=== PATIENT | male | born 1995 | race Caucasian/White ===

== ENCOUNTER 2022-06-02 10:22 | Observation (INO) ==
[2022-06-02] MEDS ORDERED: HYDROmorphone 1 MG/1 ML SYRINGE IV STA (10:40)
[2022-06-02] MEDS ORDERED: ONDANSETRON 4 MG/2 ML VIAL IV STA (10:40)
[2022-06-02] MEDS ORDERED: SODIUM CHLORIDE 0.9% 1,000 ML IV STA (10:40)
[2022-06-02 11:04] LABS: Basophils % 0.4 % (0.0-0.8); Eosinophils % 0.2 % (0.00-10.9); Hematocrit 42.9 VOL% (42.0-52.0); Hemoglobin 14.8 GM/DL (14.0-18.0); Immature Granulocytes % 0.4 %; Immature Granulocytes Absolute 0.02 #; Lymphocytes # 1.1 10*3/uL (1.4-4.0); Lymphocytes % 21.8 % (21.2-54.2); Mean Corpuscular HGB Conc 34.5 GM/DL (32-36); Mean Corpuscular Volume 88.6 FL (87-102); Mean Platelet Volume 9.1 FL (9.6-12.0); Monocytes # 0.6 10*3/uL (0.11-0.8); Monocytes % 12.3 % (1.7-12.7); Neutrophils % 64.9 % (38.7-73.9); Platelet Count 203 T/CUMM (130-400); Red Blood Count 4.84 MC/CUMM (3.8-5.5); Red Cell Distribution Width 11.2 % (9.3-17.3); White Blood Count 5.1 T/CUMM (4-12)
[2022-06-02] MEDS ORDERED: cefTRIAXone 1,000 MG in SODIUM CHLORIDE 0.9% 100 ML IV STA (11:15)
[2022-06-02 11:22] LABS: Calcium 9.4 MG/DL (8.5-10.1); Osmolality,Calculated 277.5 MOS/KG (273-304)
[2022-06-02] MEDS ORDERED: oxyCODONE/ACETAMINOPHEN 5-325 MG TABLET PO PRN (12:36)
[2022-06-02] MEDS ORDERED: HYDROmorphone 1 MG/1 ML SYRINGE IV PRN (12:36)
[2022-06-02] MEDS ORDERED: SIMETHICONE CHEW 125 MG TABLET PO PRN (12:36)
[2022-06-02] MEDS ORDERED: ONDANSETRON 4 MG/2 ML VIAL IV PRN (12:36)
[2022-06-02] MEDS ORDERED: PROMETHAZINE 25 MG/1 ML VIAL IM PRN (12:36)
[2022-06-02] MEDS ORDERED: diphenhydrAMINE 50 MG/1 ML VIAL IV PRN (12:36)
[2022-06-02] MEDS: SODIUM CHLORIDE 0.9% 1,000 ML IV SCH ×2 (13:32→21:00)
[2022-06-02] MEDS: ACETAMINOPHEN 325 MG TABLET PO SCH ×2 (13:33→20:37)
[2022-06-02] MEDS ORDERED: ONDANSETRON 4 MG/2 ML VIAL ONE (14:35)
[2022-06-02] MEDS ORDERED: fentaNYL 100 MCG/2 ML VIAL ONE (14:35)
[2022-06-02] MEDS ORDERED: propofoL 200 MG/20 ML VIAL IV ONE (14:35)
[2022-06-02] MEDS ORDERED: MIDAZOLAM 2 MG/2 ML VIAL ONE (14:35)
[2022-06-02] MEDS ORDERED: ROCURONIUM 50 MG/5 ML VIAL IV ONE (14:35)
[2022-06-02] MEDS ORDERED: SEVOFLURANE 1 UNIT/15 MINUTE INH ONE (14:35)
[2022-06-02] MEDS ORDERED: SUCCINYLCHOLINE 200 MG/10 ML VIAL ONE (14:35)
[2022-06-02] MEDS ORDERED: LIDOCAINE 2% 5 ML VIAL ONE (14:35)
[2022-06-02] MEDS ORDERED: SCOPOLAMINE 1.5 MG PATCH TRANSDERM ONE (17:06)
[2022-06-02] MEDS ORDERED: cefTRIAXone 1,000 MG VIAL ONE (17:18)
[2022-06-02 17:52] LABS: Bilirubin,Urine Negative (Negative); Blood, Urine Small mg/dL (Negative); Glucose,Urine (UA) Negative (Negative); Ketones,Urine 15 mg/dL (Negative); Nitrite,Urine Negative (Negative); Protein,Urine Negative (Negative); Urine Appearance Clear (Clear); Urine Color Yellow (Yellow); Urine Specific Gravity >= 1.030 (1.001-1.035)
[2022-06-02 17:55] LABS: Hyaline Casts,Urine 1 /LPF (0-3); Mucus,Urine Occasional /LPF (Occasional); RBC,Urine 34 /HPF (0-4)
[2022-06-02] MEDS: DOCUSATE SODIUM 100 MG CAPSULE PO SCH (20:36)
[2022-06-02] MEDS: FAMOTIDINE 20 MG TABLET PO SCH (20:36)
[2022-06-02] MEDS: CIPROFLOXACIN 500 MG TABLET PO SCH (20:36)
[2022-06-03] MEDS: ACETAMINOPHEN 325 MG TABLET PO SCH ×2 (01:55→06:27)
[2022-06-03 04:36] LABS: Basophils % 0.2 % (0.0-0.8); Eosinophils % 0.2 % (0.00-10.9); Hematocrit 36.6 VOL% (42.0-52.0); Hemoglobin 12.8 GM/DL (14.0-18.0); Immature Granulocytes % 0.4 %; Immature Granulocytes Absolute 0.02 #; Lymphocytes # 1.7 10*3/uL (1.4-4.0); Lymphocytes % 34.8 % (21.2-54.2); Mean Corpuscular Volume 87.1 FL (87-102); Mean Platelet Volume 9.3 FL (9.6-12.0); Monocytes # 0.6 10*3/uL (0.11-0.8); Monocytes % 12.5 % (1.7-12.7); Neutrophils % 51.9 % (38.7-73.9); Platelet Count 175 T/CUMM (130-400); Red Cell Distribution Width 11.2 % (9.3-17.3); White Blood Count 4.9 T/CUMM (4-12)
[2022-06-03] MEDS: SODIUM CHLORIDE 0.9% 1,000 ML IV SCH (04:53)
[2022-06-03 04:55] LABS: Calcium 8.4 MG/DL (8.5-10.1); Osmolality,Calculated 275.5 MOS/KG (273-304); Potassium 3.8 MMOL/L (3.5-5.1)
[2022-06-03 08:26] VITALS: BP 114/59
[2022-06-03] MEDS ORDERED: TAMSULOSIN 0.4 MG CAPSULE PO SCH (09:00)
[2022-06-03] MEDS: DOCUSATE SODIUM 100 MG CAPSULE PO SCH (09:52)
[2022-06-03] MEDS: FAMOTIDINE 20 MG TABLET PO SCH (09:52)
[2022-06-03] MEDS: CIPROFLOXACIN 500 MG TABLET PO SCH (09:52)
[2022-06-03] MEDS: PHENAZOPYRIDINE 95 MG TABLET PO SCH ×2 (09:52→12:50)
[2022-06-03] MEDS ORDERED: cefTRIAXone 1,000 MG in SODIUM CHLORIDE 0.9% 100 ML IV SCH (12:00)
== END 2022-06-03 14:28 | disposition home or self-care (01) ==
LOC: N.ED 10:22 → N.2W 10:22
PROVIDERS: ADMIT Surgery; ATTEND Surgery